=== PATIENT | male | born 1990 | race Caucasian/White ===

== ENCOUNTER 2023-02-16 10:40 | Inpatient (IN) ==
[2023-02-16] MEDS ORDERED: HYDROmorphone INJ 1 MG/ML SYRINGE IM STA (10:55)
[2023-02-16] MEDS ORDERED: KETOROLAC TROMETHAMINE 15 MG/ML VIAL IV STA (12:36)
[2023-02-16] MEDS ORDERED: GABAPENTIN 300 MG CAP PO SCH (12:45)
[2023-02-16 13:19] LABS: Basophils # (auto) 0.04 K/uL (0.00-0.20); Basophils % (auto) 0.4 %; Eosinophils # (auto) 0.11 K/uL (0.00-0.50); Eosinophils % (auto) 1.2 %; Hematocrit (blood only) 50.7 % (42.0-52.0); Immature Granulocytes # (auto) 0.04 K/uL (0.01-0.20); Immature Granulocytes % (auto) 0.4 %; Lymphocytes # (auto) 1.88 K/uL (1.20-3.40); Lymphocytes % (auto) 19.7 %; Mean Corpuscular Hemoglobin 29.8 pg (25.0-34.0); Mean Corpuscular Hgb Conc 33.5 g/dL (32.0-36.0); Mean Corpuscular Volume 88.9 fL (80.0-100.0); Monocytes # (auto) 0.65 K/uL (0.11-0.59); Monocytes % (auto) 6.8 %; Neutrophils % (auto) 71.5 %; Platelet Count 243 K/uL (130-400); RDW Coefficient of Variation 11.9 % (11.5-14.5); RDW Standard Deviation 38.9 fL (36.4-46.3); White Blood Count 9.52 K/ul (4.8-10.8)
[2023-02-16 13:41] LABS: Albumin Globulin Ratio 1.4 (0.9-2); Albumin Level 4.6 gm/dl (3.4-5.0); BUN Creatinine Ratio 21.1 (10-20); Bilirubin,Total 0.4 mg/dl (0.2-1.0); Calcium 9.8 mg/dl (8.6-10.3); Creatinine Clr Calc Pharmacy 172.5 ml/min; Est GFR (African American) 139.9 ml/min; Est GFR (Non-African American) 120.7 ml/min; Globulin 3.4 gm/dl (2.5-4.0); Potassium 4.4 mmol/L (3.5-5.1)
--- NOTE | 2023-02-16 15:38 | CT Scan Report ---
CT SCAN OF THE LUMBAR SPINE WITHOUT IV CONTRAST CLINICAL HISTORY: Low back pain. Right lower extremity radiculopathy. COMPARISON STUDY: MRI of the lumbar spine dated 11/27/2011. Abdominal CT dated 04/28/2022. TECHNIQUE: CT scan of the lumbar spine is performed from the lower thoracic spine to the sacrum. Imag es are reviewed in the axial, sagittal, and coronal planes. IV contrast was not administered for this examination. A dose lowering technique was utilized adhering to the principles of ALARA. CT DOSE: 1126.26 mGy.cm FINDINGS: The skeletal structures are well-mineralized. There is no evidence of fracture or malalignm ent involving the lumbar spine. Vertebral body height and alignment are maintained throughout the lum bar spine. Small anterior and lateral marginal osteophytes are seen throughout. The transverse and sp inous processes appear intact. There is no spondylolysis. No lytic or blastic lesion is seen. There i s moderate disc space narrowing at L5-S1 with associated endplate sclerosis. Mild disc space narrowin g is seen at the remaining lumbar levels. Small posterior disc occupy complex is are seen at L3-L4, L 4-L5, and L5-S1. There is a large posterior disc protrusion eccentric to the left at L4-L5, best seen on axial image #275. This contiguous to at least moderate central canal stenosis at this level. Ther e is left greater than right lateral disc bulge at this level which contribute to bilateral subarticu lar stenosis. This likely impinges on the exiting left L4 nerve root and may also abut the exiting ri ght L4 nerve root. There is a large left lateral disc bulge at L5-S1 seen on image #322. This contrib utes to subarticular stenosis and impinges on the exiting left L5 nerve root. Right lateral disc bulg e L5-S1 may abut the exiting right L5 nerve root. The visualized sacrum and bony pelvis appear intact . The paraspinous soft tissues are normal in appearance. The retroperitoneal structures are normal as visualized. No retroperitoneal lymphadenopathy is seen. IMPRESSION: 1. No acute bony abnormality is seen involving the lumbar spine. 2. Degenerative disc disease at L4-L5 and L5-S1 as above. See discussion. ACT 112: Negative or not required by law. Electronically signed by: Sheldon Ponce M.D. 02/16/2023 3:37 PM
[2023-02-16 15:42] LABS: Appearance Urine Clear (Clear); Bilirubin Urine Negative (Negative); Blood Urine Negative (Negative); Color Urine Yellow; Glucose Urine UA Negative (Negative); Ketones Urine Negative (Negative); Leukocyte Esterase Urine Negative (Negative); Nitrite Urine Negative (Negative); Protein Urine Negative (Negative); Specific Gravity Urine 1.023 (1.000-1.030); Urobilinogen Urine Negative (Negative); pH Urine 6.5 (4.5-7.5)
[2023-02-16] MEDS ORDERED: HYDROCODONE/ACETAMOPHEN 5/325MG TAB PO STA (16:42)
[2023-02-16] MEDS ORDERED: DEXAMETHASONE SOD INJ 4 MG/ML VIAL IV STA (16:42)
[2023-02-16] MEDS ORDERED: BACLOFEN 20 MG TAB PO STA (16:42)
--- NOTE | 2023-02-16 16:46 | Emergency Department Note ---
ED Provider Note History of Present Illness Chief Complaint: Back Injury/Pain Stated Complaint: BACK INJURY Time Seen by Provider: 02/16/23 10:45 Source: patient Mode of arrival: EMS Limitations: no limitations This patient is a 32-year-old male who presents to the emergency department via EMS for evaluation of back pain. Patient reports that "his back went out." He states that pain started last night but worsened this morning. He denies any specific injury to the back but states that he has pain in the right low back which radiates down the right posterior thigh. He reports a history of herniated disks. He has a back specialist as well as a painter set at home, but not from the area here. He states that typically when this happens he requires admission for a few days. He reports some weakness in the leg, denies numbness and denies incontinence. Home Medications Medication Instructions Recorded Confirmed Type No Known Home Medications 04/28/22 02/16/23 History Allergies Allergy/AdvReac Type Severity Reaction Status Date / Time No Known Allergies Allergy Unverified 02/16/23 16:34 Past Med/Surg History Social History Smoking Status: Former smoker Tobacco Type: Smokeless Tobacco (Dip or Chew) Do You Dip or Chew Tobacco: Yes; Hx Alcohol Use: No Hx Substance Use: No Preferred Language: Maori Communication Ability: Effective Banjo [employer] Person Required: No Beliefs That Will Affect Care: None Current Living Situation: Family Other Information That Helps Us Care for You: No Feels Safe at Home: Yes Safety Concerns: Feels Safe At This Time Assistive Devices: None Physical Exam Vital Signs Vital Signs - 24 hr 02/16/23 10:54 02/16/23 11:01 02/16/23 11:20 Temperature 36.5 C Temperature Source Oral Pulse Rate 85 72 Pulse Rate [Right Finger] 74 Pulse Rhythm Regular Pulse Rhythm [Right Finger] Regular Pulse Strength [Right Finger] Normal Respiratory Rate 20 20 20 Respiratory Effort / Characteristics Non-Labored Spontaneous Non-Labored Spontaneous Respiratory Depth Normal Normal Respiratory Pattern Regular Regular Blood Pressure 156/85 H Blood Pressure [Left Arm] 148/78 H Blood Pressure Mean 108 Blood Pressure Mean [Left Arm] 101 Blood Pressure Position [Left Arm] Lying Pulse Oximetry 95 97 92 Oxygen Delivery Method Room Air Room Air Room Air Sepsis Recent Fever Within 48 Hours No Sepsis New/Unexplained Change in Mental Status N/A Sepsis Action Taken by Nursing No Action Required 02/16/23 13:00 02/16/23 15:00 Temperature Temperature Source Pulse Rate Pulse Rate [Right Finger] 94 H 82 Pulse Rhythm Pulse Rhythm [Right Finger] Regular Pulse Strength [Right Finger] Normal Respiratory Rate 20 20 Respiratory Effort / Characteristics Non-Labored Spontaneous Non-Labored Spontaneous Respiratory Depth Normal Normal Respiratory Pattern Regular Regular Blood Pressure Blood Pressure [Left Arm] 151/74 H Blood Pressure Mean Blood Pressure Mean [Left Arm] 99 Blood Pressure Position [Left Arm] Lying Pulse Oximetry 95 94 Oxygen Delivery Method Room Air Room Air Sepsis Recent Fever Within 48 Hours Sepsis New/Unexplained Change in Mental Status Sepsis Action Taken by Nursing VITALS: Vitals are noted on the nurse's note and reviewed by myself. GENERAL: This is a 32-year-old male, in no acute distress, well-developed well- nourished. SKIN: The skin was without rashes. HEART: Regular rate and rhythm without murmurs gallops or rubs. LUNGS: Clear to auscultation bilaterally without wheezes, rales or rhonchi. ABDOMEN: Positive bowel sounds x 4. Soft, nontender. MUSCULOSKELETAL: No deformity. No tenderness of the spine. Full range of motion of bilateral lower extremities. Patellar DTRs 2+ bilaterally. NEURO: Patient was alert and oriented to person place and time. Distal sensation intact over bilateral lower extremities. Course Administered Medications Hydrocodone Bitart/Acetaminophen (Hydrocodone/Acetamophen 5/325mg Tab) 1 tab PO Q4H PRN PRN Reason: Moderate Pain (Scale 4, 5, 6) Stop: 03/02/23 21:04 Last Admin: 02/17/23 20:13 Dose: 1 tab Documented By: Admin: 02/17/23 14:31 Dose: 1 tab Documented By: Admin: 02/17/23 10:33 Dose: 1 tab Documented By: Admin: 02/17/23 05:21 Dose: 1 tab Documented By: Admin: 02/16/23 20:09 Dose: 1 tab Documented By: SANTOS Baclofen (Baclofen 20 Mg Tab) 20 mg PO TID [facility] Stop: 03/18/23 21:59 Last Admin: 02/17/23 20:14 Dose: 20 mg Documented By: Admin: 02/17/23 13:59 Dose: 20 mg Documented By: Admin: 02/17/23 07:50 Dose: 20 mg Documented By: Admin: 02/16/23 21:43 Dose: 20 mg Documented By: EM Calcium Carbonate (Calcium Carbonate 500 Mg Chewable Tab) 1,000 mg PO Q6H PRN PRN Reason: Indigestion Stop: 03/19/23 05:28 Last Admin: 02/17/23 16:01 Dose: 1,000 mg Documented By: Admin: 02/17/23 05:54 Dose: 1,000 mg Documented By: EM Gabapentin (Gabapentin 300 Mg Cap) 300 mg PO BID [facility] Stop: 03/18/23 20:59 Last Admin: 02/17/23 20:13 Dose: 300 mg Documented By: Admin: 02/17/23 07:51 Dose: 300 mg Documented By: Admin: 02/16/23 21:44 Dose: 300 mg Documented By: SANTOS Dexamethasone 6 mg/ Syringe 1.5 mls @ 1 mls/min IV Q8H [facility] Stop: 03/18/23 22:59 Last Admin: 02/17/23 14:28 Dose: 1 mls/min Documented By: Admin: 02/17/23 06:30 Dose: 1 mls/min Documented By: Admin: 02/16/23 22:48 Dose: 1 mls/min Documented By: SANTOS Morphine Sulfate (Morphine Sulfate 4 Mg/Ml 1 Ml Carp\\Vial) 4 mg IV Q3H PRN PRN Reason: Severe Pain (Scale 7, 8, 9,10) Stop: 03/02/23 17:01 Last Admin: 02/17/23 18:42 Dose: 4 mg Documented By: Admin: 02/17/23 15:40 Dose: 4 mg Documented By: Admin: 02/17/23 12:26 Dose: 4 mg Documented By: Admin: 02/17/23 09:24 Dose: 4 mg Documented By: Admin: 02/17/23 06:13 Dose: 4 mg Documented By: Admin: 02/17/23 01:58 Dose: 4 mg Documented By: Admin: 02/16/23 22:48 Dose: 4 mg Documented By: Admin: 02/16/23 17:47 Dose: 4 mg Documented By: JANNETTE Discontinued Medications Hydrocodone Bitart/Acetaminophen (Hydrocodone/Acetamophen 5/325mg Tab) 1 tab PO NOW STA Stop: 02/16/23 16:43 Last Admin: 02/16/23 17:45 Dose: 1 tab Documented By: JANNETTE Baclofen (Baclofen 20 Mg Tab) 20 mg PO NOW STA Stop: 02/16/23 16:43 Last Admin: 02/16/23 17:46 Dose: 20 mg Documented By: JANNETTE Dexamethasone (Dexamethasone Sod Inj 4 Mg/Ml Vial) 10 mg IV NOW STA Stop: 02/16/23 16:43 Last Admin: 02/16/23 17:48 Dose: 10 mg Documented By: JANNETTE Gabapentin (Gabapentin 300 Mg Cap) 300 mg PO QAM [facility] Stop: 03/18/23 12:44 Last Admin: 02/16/23 13:32 Dose: 300 mg Documented By: JANNETTE Hydromorphone HCl (Hydromorphone Inj 1 Mg/Ml Syringe) 1 mg IM NOW STA Stop: 02/16/23 10:56 Last Admin: 02/16/23 11:26 Dose: 1 mg Documented By: JANNETTE Ketorolac Tromethamine (Ketorolac Tromethamine 15 Mg/Ml Vial) 15 mg IV NOW STA Stop: 02/16/23 12:37 Last Admin: 02/16/23 13:09 Dose: 15 mg Documented By: JANNETTE Polyethylene Glycol (Polyethylene (Miralax) 17 Gm Pack) 17 gm PO ONCE ONE Stop: 02/17/23 11:26 Last Admin: 02/17/23 11:38 Dose: 17 gm Documented By: DC Medical Decision Making Differential Diagnosis Differential diagnosis includes cauda equina syndrome, cord compression, disc herniation, muscle spasm, lumbar strain, epidural abscess, malignancy, transverse myelitis, urinary tract infection, colitis, diverticulitis, kidney stone, among others. Home Medications was personally reviewed by me Laboratory Data Attestation: I reviewed the patient's lab results. 02/17/23 05:36 02/17/23 05:36 Lab Results 02/16/23 Range/Units 12:51 WBC 9.52 (4.8-10.8) K/ul RBC 5.70 (4.70-6.10) M/uL Hgb 17.0 (14.0-18.0) g/dl Hct 50.7 (42.0-52.0) % MCV 88.9 (80.0-100.0) fL MCH 29.8 (25.0-34.0) pg MCHC 33.5 (32.0-36.0) g/dL RDW Std Deviation 38.9 (36.4-46.3) fL RDW Coeff of Danny 11.9 (11.5-14.5) % Plt Count 243 (130-400) K/uL MPV 10.0 (9.4-12.4) fL Immature Gran % (Auto) 0.4 % Neut % (Auto) 71.5 % Lymph % (Auto) 19.7 % [place] % (Auto) 6.8 % Eos % (Auto) 1.2 % Baso % (Auto) 0.4 % Neut # (Auto) 6.80 H (1.40-6.50) K/uL Lymph # (Auto) 1.88 (1.20-3.40) K/uL [place] # (Auto) 0.65 H (0.11-0.59) K/uL Eos # (Auto) 0.11 (0.00-0.50) K/uL Baso # (Auto) 0.04 (0.00-0.20) K/uL Immature Gran # (Auto) 0.04 (0.01-0.20) K/uL Sodium 138 (136-145) mmol/L Potassium 4.4 (3.5-5.1) mmol/L Chloride 103 (98-107) mmol/L Carbon Dioxide 29 (21-32) mmol/L Anion Gap 6 (3-11) BUN 16 (6-23) mg/dl Creatinine 0.76 (0.6-1.4) mg/dl Est Cr Clr Drug Dosing 172.5 ml/min Est GFR ( Amer) 139.9 ml/min Est GFR (Non-Af Amer) 120.7 ml/min BUN/Creatinine Ratio 21.1 H (10-20) Glucose 97 (70-99(Fasting)) mg/dl Calcium 9.8 (8.6-10.3) mg/dl Total Bilirubin 0.4 (0.2-1.0) mg/dl AST 20 (13-39) U/L ALT 36 (7-52) U/L Alkaline Phosphatase 51 (34-104) U/L Total Protein 8.0 (6.0-8.3) gm/dl Albumin 4.6 (3.4-5.0) gm/dl Globulin 3.4 (2.5-4.0) gm/dl Albumin/Globulin Ratio 1.4 (0.9-2) Imaging Data Attestation: I personally reviewed and interpreted this imaging study as follows: Radiologist's Impression: Lumbar Spine CT 02/16/23 12:36 CT SCAN OF THE LUMBAR SPINE WITHOUT IV CONTRAST CLINICAL HISTORY: Low back pain. Right lower extremity radiculopathy. COMPARISON STUDY: MRI of the lumbar spine dated 11/27/2011. Abdominal CT dated 04/28/2022. TECHNIQUE: CT scan of the lumbar spine is performed from the lower thoracic spine to the sacrum. Images are reviewed in the axial, sagittal, and coronal planes. IV contrast was not administered for this examination. A dose lowering technique was utilized adhering to the principles of ALARA. CT DOSE: 1126.26 mGy.cm FINDINGS: The skeletal structures are well-mineralized. There is no evidence of fracture or malalignment involving the lumbar spine. Vertebral body height and alignment are maintained throughout the lumbar spine. Small anterior and lateral marginal osteophytes are seen throughout. The transverse and spinous processes appear intact. There is no spondylolysis. No lytic or blastic lesion is seen. There is moderate disc space narrowing at L5-S1 with associated endplate sclerosis. Mild disc space narrowing is seen at the remaining lumbar levels. Small posterior disc occupy complex is are seen at L3-L4, L4-L5, and L5-S1. There is a large posterior disc protrusion eccentric to the left at L4-L5, best seen on axial image #275. This contiguous to at least moderate central canal stenosis at this level. There is left greater than right lateral disc bulge at this level which contribute to bilateral subarticular stenosis. This likely impinges on the exiting left L4 nerve root and may also abut the exiting right L4 nerve root. There is a large left lateral disc bulge at L5-S1 seen on image #322. This contributes to subarticular stenosis and impinges on the exiting left L5 nerve root. Right lateral disc bulge L5-S1 may abut the exiting right L5 nerve root. The visualized sacrum and bony pelvis appear intact. The paraspinous soft tissues are normal in appearance. The retroperitoneal structures are normal as visualized. No retroperitoneal lymphadenopathy is seen. IMPRESSION: 1. No acute bony abnormality is seen involving the lumbar spine. 2. Degenerative disc disease at L4-L5 and L5-S1 as above. See discussion. ACT 112: Negative or not required by law. Electronically signed by: Sheldon oPnce M.D. 02/16/2023 3:37 PM MDM Narrative This patient is a 32-year-old male who presents to the emergency department for evaluation of low back pain. Patient has a history of back pain but is not from the area. He reportedly has a spine surgeon and painter set at home. There are no red flags that would be concerning for cauda equina syndrome, cord compression or infection. CT of the lumbar spine shows degenerative changes. Labs unremarkable. Patient treated with multiple doses of medication. He requested gabapentin as he states this has helped him in the past he was given a dose of this without relief. On multiple reassessments, patient reported no relief in his pain and reported that he was not able to get up and move and did not feel he was able to be discharged. [facility] and did agree to evaluate the patient for further care. Impression Lumbar radiculopathy Discharge Plan Visit Data Chief Complaint: Back Injury/Pain Stated Complaint: BACK INJURY ED Provider: Sheldon Wilkins ED Midlevel Provider: Sherine Luke Discharge Problem: Lumbar radiculopathy Patient Disposition: Admitted As Inpatient Discharge Instructions Interventions: ED Discharge Assessment Last Done: 02/16/23 21:22
--- NOTE | 2023-02-16 17:04 | History & Physical Report ---
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 He typically has symptoms of left lower extremity radiculopathy when he has flareups, however, this time he developed right lower extremity radiculopathy in addition to the left He denies bowel or bladder incontinence He denies any recent trauma CT scan of the lumbar spine shows disc bulges at L4 and L5, with impingement of exiting nerve roots more prominent on left than right. There is also moderate central canal stenosis at L4-L5 level From the ED patient received the following: Gabapentin 300 mg p.o., Toradol 15 mg IV and Dilaudid 1 mg IM Gabapentin 300 mg p.o. twice daily Give dexamethasone 10 mg IV now, then 6 mg IV every 8 hours Baclofen 20 mg p.o. 3 times daily with first dose now [place] 5/325, 1 every 4 hours as needed for moderate pain Morphine sulfate 4 mg IV every 3 hours as needed for severe pain Consult to orthopedic spine surgery Dr. Hernandez History of Present Illness Chief Complaint: The patient presents to the emergency department with complaint of acute worsening of his intermittent low back pain, which usually causes radiation down his left leg, but this time is causing pain down his right leg. 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 He denies loss of bowel or bladder function. 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 Allergies Allergy/AdvReac Type Severity Reaction Status Date / Time No Known Allergies Allergy Unverified 02/16/23 16:34 Home Medications Medication Instructions Recorded Confirmed Type No Known Home Medications 04/28/22 02/16/23 History Past Med/Surg History Social History Smoking Status: Never smoker Feels Safe at Home: Yes Review of Systems Review of Systems: The patient denies chest pain, palpitations, shortness of breath, dyspnea on exertion, cough, lower extremity swelling, sore throat, fevers, chills, sweats, weight change, nausea, vomiting, diarrhea , constipation, abdominal pain, pelvic pain, blood in urine or stool, dysuria, urinary frequency or urgency, lightheadedness, dizziness, headache, memory loss, loss of consciousness, rash, abnormal bruising or bleeding, imbalance, focal or generalized weakness, numbness or tingling in arms , generalized arthralgias or myalgias, neck pain, or night sweats. The review of systems is otherwise negative other than for that already noted above, and at least 10 systems have been reviewed. Physical Exam Physical Exam: The patient is awake, alert and oriented 3, well developed and well nourished, normocephalic and atraumatic, lying in bed and in mild distress secondary to low back and right leg pain HEENT--PERRL, EOMI, mucous membranes and oropharynx normal Neck--supple. No JVD. No bruits. Thyroid normal, trachea midline, no adenopathy. Heart--normal S1 and S2. No murmurs, rubs or gallops. Lungs--clear bilaterally, no respiratory distress, no accessory muscle use. Abdomen--normal bowel sounds and soft. Nontender. Nondistended, no hernias or masses, no organomegaly. Extremities--no cyanosis or clubbing. No edema. There are good distal pulses b/l. Dermatologic--normal skin turgor, normal color, no abnormal lymph nodes, no rash. Neurologic--cranial nerves II through XII grossly intact. Rheumatologic--limited exam due to back pain and right lower extremity pain Psychiatric--normal affect. Results & Data Results & Data Vital Signs (Past 12 Hours) Vital Signs Temp Pulse Pulse Resp BP BP Pulse Ox 02/16/23 15:00 82 20 151/74 H 94 02/16/23 13:00 94 H 20 95 02/16/23 11:20 74 20 148/78 H 92 02/16/23 11:01 72 20 97 02/16/23 10:54 36.5 C 85 20 156/85 H 95 O2 Del Method 02/16/23 15:00 Room Air 02/16/23 13:00 Room Air 02/16/23 11:20 Room Air 02/16/23 11:01 Room Air 02/16/23 10:54 Room Air Laboratory Results Laboratory Results WBC 9.52 K/ul (4.8-10.8) 02/16/23 12:51 RBC 5.70 M/uL (4.70-6.10) 02/16/23 12:51 Hgb 17.0 g/dl (14.0-18.0) 02/16/23 12:51 Hct 50.7 % (42.0-52.0) 02/16/23 12:51 MCV 88.9 fL (80.0-100.0) 02/16/23 12:51 MCH 29.8 pg (25.0-34.0) 02/16/23 12:51 MCHC 33.5 g/dL (32.0-36.0) 02/16/23 12:51 RDW Std Deviation 38.9 fL (36.4-46.3) 02/16/23 12:51 RDW Coeff of Danny 11.9 % (11.5-14.5) 02/16/23 12:51 Plt Count 243 K/uL (130-400) 02/16/23 12:51 MPV 10.0 fL (9.4-12.4) 02/16/23 12:51 Immature Gran % (Auto) 0.4 % 02/16/23 12:51 Neut % (Auto) 71.5 % 02/16/23 12:51 Lymph % (Auto) 19.7 % 02/16/23 12:51 [place] % (Auto) 6.8 % 02/16/23 12:51 Eos % (Auto) 1.2 % 02/16/23 12:51 Baso % (Auto) 0.4 % 02/16/23 12:51 Neut # (Auto) 6.80 K/uL (1.40-6.50) H 02/16/23 12:51 Lymph # (Auto) 1.88 K/uL (1.20-3.40) 02/16/23 12:51 [place] # (Auto) 0.65 K/uL (0.11-0.59) H 02/16/23 12:51 Eos # (Auto) 0.11 K/uL (0.00-0.50) 02/16/23 12:51 Baso # (Auto) 0.04 K/uL (0.00-0.20) 02/16/23 12:51 Immature Gran # (Auto) 0.04 K/uL (0.01-0.20) 02/16/23 12:51 Sodium 138 mmol/L (136-145) 02/16/23 12:51 Potassium 4.4 mmol/L (3.5-5.1) 02/16/23 12:51 Chloride 103 mmol/L (98-107) 02/16/23 12:51 Carbon Dioxide 29 mmol/L (21-32) 02/16/23 12:51 Anion Gap 6 (3-11) 02/16/23 12:51 BUN 16 mg/dl (6-23) 02/16/23 12:51 Creatinine 0.76 mg/dl (0.6-1.4) 02/16/23 12:51 Est Cr Clr Drug Dosing 172.5 ml/min 02/16/23 12:51 Est GFR ( Amer) 139.9 ml/min 02/16/23 12:51 Est GFR (Non-Af Amer) 120.7 ml/min 02/16/23 12:51 BUN/Creatinine Ratio 21.1 (10-20) H 02/16/23 12:51 Glucose 97 mg/dl (70-99(Fasting)) 02/16/23 12:51 Calcium 9.8 mg/dl (8.6-10.3) 02/16/23 12:51 Total Bilirubin 0.4 mg/dl (0.2-1.0) 02/16/23 12:51 AST 20 U/L (13-39) 02/16/23 12:51 ALT 36 U/L (7-52) 02/16/23 12:51 Alkaline Phosphatase 51 U/L (34-104) 02/16/23 12:51 Total Protein 8.0 gm/dl (6.0-8.3) 02/16/23 12:51 Albumin 4.6 gm/dl (3.4-5.0) 02/16/23 12:51 Globulin 3.4 gm/dl (2.5-4.0) 02/16/23 12:51 Albumin/Globulin Ratio 1.4 (0.9-2) 02/16/23 12:51 Urine Color Yellow 02/16/23 Unknown Urine Appearance Clear (Clear) 02/16/23 Unknown Urine pH 6.5 (4.5-7.5) 02/16/23 Unknown Ur Specific [place] 1.023 (1.000-1.030) 02/16/23 Unknown Urine Protein Negative (Negative) 02/16/23 Unknown Urine Glucose (UA) Negative (Negative) 02/16/23 Unknown Urine Ketones Negative (Negative) 02/16/23 Unknown Urine Blood Negative (Negative) 02/16/23 Unknown Urine Nitrite Negative (Negative) 02/16/23 Unknown Urine Bilirubin Negative (Negative) 02/16/23 Unknown Urine Urobilinogen Negative (Negative) 02/16/23 Unknown Ur Leukocyte Esterase Negative (Negative) 02/16/23 Unknown Impressions Lumbar Spine CT 02/16/23 12:36 CT SCAN OF THE LUMBAR SPINE WITHOUT IV CONTRAST CLINICAL HISTORY: Low back pain. Right lower extremity radiculopathy. COMPARISON STUDY: MRI of the lumbar spine dated 11/27/2011. Abdominal CT dated 04/28/2022. TECHNIQUE: CT scan of the lumbar spine is performed from the lower thoracic spine to the sacrum. Images are reviewed in the axial, sagittal, and coronal planes. IV contrast was not administered for this examination. A dose lowering technique was utilized adhering to the principles of ALARA. CT DOSE: 1126.26 mGy.cm FINDINGS: The skeletal structures are well-mineralized. There is no evidence of fracture or malalignment involving the lumbar spine. Vertebral body height and alignment are maintained throughout the lumbar spine. Small anterior and lateral marginal osteophytes are seen throughout. The transverse and spinous processes appear intact. There is no spondylolysis. No lytic or blastic lesion is seen. There is moderate disc space narrowing at L5-S1 with associated endplate sclerosis. Mild disc space narrowing is seen at the remaining lumbar levels. Small posterior disc occupy complex is are seen at L3-L4, L4-L5, and L5-S1. There is a large posterior disc protrusion eccentric to the left at L4-L5, best seen on axial image #275. This contiguous to at least moderate central canal stenosis at this level. There is left greater than right lateral disc bulge at this level which contribute to bilateral subarticular stenosis. This likely impinges on the exiting left L4 nerve root and may also abut the exiting right L4 nerve root. There is a large left lateral disc bulge at L5-S1 seen on image #322. This contributes to subarticular stenosis and impinges on the exiting left L5 nerve root. Right lateral disc bulge L5-S1 may abut the exiting right L5 nerve root. The visualized sacrum and bony pelvis appear intact. The paraspinous soft tissues are normal in appearance. The retroperitoneal structures are normal as visualized. No retroperitoneal lymphadenopathy is seen. IMPRESSION: 1. No acute bony abnormality is seen involving the lumbar spine. 2. Degenerative disc disease at L4-L5 and L5-S1 as above. See discussion. ACT 112: Negative or not required by law. Electronically signed by: Sheldon Ponce M.D. 02/16/2023 3:37 PM Code Status & VTE Plan Code Status Full code VTE Prophylaxis Plan VTE Prophylaxis will be ordered: Yes PG Care Time/CCT Total # of Minutes Spent Total Time Spent with Patient: Total time spent is greater than 50% in coordination of care (as documented) at patient's floor/unit and/or counseling patient: Coding Level of Care Code 28931 INT INP/OBS CARE 3/75MIN Diagnoses Lumbosacral radiculopathy due to degenerative joint disease of spine M47.27
[2023-02-16] MEDS: MoRPHine SULFATE 4 MG/ML 1 ML CARP\\VIAL IV PRN ×2 (17:47→22:48)
[2023-02-16] MEDS ORDERED: ACETAMINOPHEN 325 MG TAB PO PRN (19:42)
[2023-02-16] MEDS ORDERED: ONDANSETRON INJ 2 MG/ML 2 ML VIAL IV PRN (19:42)
[2023-02-16] MEDS ORDERED: HYDROCODONE/ACETAMOPHEN 5/325MG TAB PO PRN (19:42)
[2023-02-16] MEDS: HYDROCODONE/ACETAMOPHEN 5/325MG TAB PO PRN (20:09)
[2023-02-16] MEDS: BACLOFEN 20 MG TAB PO SCH (21:43)
[2023-02-16] MEDS: GABAPENTIN 300 MG CAP PO SCH (21:44)
[2023-02-16] MEDS: dexAMETHasone 6 MG in SYRINGE 0 ML IV SCH (22:48)
[2023-02-17] MEDS: MoRPHine SULFATE 4 MG/ML 1 ML CARP\\VIAL IV PRN ×7 (01:58→22:09)
[2023-02-17] MEDS: HYDROCODONE/ACETAMOPHEN 5/325MG TAB PO PRN ×4 (05:21→20:13)
[2023-02-17] MEDS: CALCIUM CARBONATE 500 MG CHEWABLE TAB PO PRN ×2 (05:54→16:01)
[2023-02-17] MEDS: dexAMETHasone 6 MG in SYRINGE 0 ML IV SCH ×3 (06:30→22:09)
[2023-02-17 06:32] LABS: Basophils # (auto) 0.02 K/uL (0.00-0.20); Basophils % (auto) 0.2 %; Hemoglobin 17.1 g/dl (14.0-18.0); Immature Granulocytes # (auto) 0.07 K/uL (0.01-0.20); Immature Granulocytes % (auto) 0.6 %; Lymphocytes % (auto) 8.7 %; Mean Corpuscular Hemoglobin 29.6 pg (25.0-34.0); Mean Corpuscular Hgb Conc 33.5 g/dL (32.0-36.0); Mean Corpuscular Volume 88.4 fL (80.0-100.0); Mean Platelet Volume 10.4 fL (9.4-12.4); Monocytes # (auto) 0.17 K/uL (0.11-0.59); Monocytes % (auto) 1.5 %; Neutrophils # (auto) 10.22 K/uL (1.40-6.50); Platelet Count 264 K/uL (130-400); RDW Coefficient of Variation 11.6 % (11.5-14.5); RDW Standard Deviation 37.2 fL (36.4-46.3); Red Blood Count 5.77 M/uL (4.70-6.10); White Blood Count 11.48 K/ul (4.8-10.8)
[2023-02-17 06:47] LABS: Albumin Level 4.4 gm/dl (3.4-5.0); BUN Creatinine Ratio 21.9 (10-20); Calcium 9.6 mg/dl (8.6-10.3); Creatinine Clr Calc Pharmacy 182.2 ml/min; Est GFR (African American) 142.2 ml/min; Est GFR (Non-African American) 122.7 ml/min; Magnesium 1.9 mg/dl (1.7-2.4); Phosphorus 2.5 mg/dl (2.5-4.9); Potassium 4.5 mmol/L (3.5-5.1)
[2023-02-17] MEDS: BACLOFEN 20 MG TAB PO SCH ×3 (07:50→20:14)
[2023-02-17] MEDS: GABAPENTIN 300 MG CAP PO SCH ×2 (07:51→20:13)
--- NOTE | 2023-02-17 11:01 | Orthopedic Consultation ---
Date of Consultation February 17, 2023 Assessment & Plan (1) Lumbosacral radiculopathy due to degenerative joint disease of spine: At this time would like to obtain an MRI lumbar spine for further anatomic detail specifically of the nerves and disc at the L4-L5 levels. I will make further conditions after review. History of Present Illness Reason for Consultation: Back and bilateral leg pain Attending Physician: Jimmie Houston MD History of Present Illness This is a very pleasant 32-year-old male who presents with more decline in status with severe right greater than left leg pain. He denies any specific trauma fall or event. Has been managing the symptoms for well over a year. It is typically on the left leg that is most symptomatic. The right leg is essentially new. 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 Denies any specific trauma fall or event. He states any sort of ambulation weightbearing right lower extremity is incapacitating and pain. He has been unable to walk since admission. Allergies Allergy/AdvReac Type Severity Reaction Status Date / Time No Known Allergies Allergy Unverified 02/16/23 16:34 Home Medications Medication Instructions Recorded Confirmed Type No Known Home Medications 04/28/22 02/16/23 History Patient History Social History Smoking Status: Former smoker Tobacco Type: Smokeless Tobacco (Dip or Chew) Do You Dip or Chew Tobacco: Yes; Hx Alcohol Use: No Hx Substance Use: No Preferred Language: Tuvaluan Communication Ability: Effective Flexible Babysitter Required: No Beliefs That Will Affect Care: None Current Living Situation: Family Other Information That Helps Us Care for You: No Feels Safe at Home: Yes Safety Concerns: Feels Safe At This Time Assistive Devices: None Physical Exam Physical Exam: On exam he is lying supine. He has reasonable sensory to cold light touch lower extremities. Plantarflexion dorsiflexion quadriceps appear to be symmetric and intact. Results & Data Vital Signs (Past 12 Hours) Vital Signs Temp Pulse Resp BP Pulse Ox O2 Del Method 02/17/23 06:35 36.7 C 90 20 131/72 93 Room Air
[2023-02-17] MEDS ORDERED: DOCUSATE SODIUM 100 MG CAP PO PRN (11:24)
[2023-02-17] MEDS ORDERED: POLYETHYLENE (MIRALAX) 17 GM PACK PO PRN (11:24)
--- NOTE | 2023-02-17 11:24 | Hospitalist Progress Note ---
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 6 Hospitalizations in the last year. Has spine surgeon in [facility] recommending fusion, but wanted a second opnion before preceding (had appointment scheduled). -Radiculopathy symptoms normally LLE, but this time RLE > LLE -He denies bowel or bladder incontinence. Denies any recent trauma -CT lumbar spine:disc bulges at L4 and L5, with impingement of exiting nerve roots more prominent on left than right. There is also moderate central canal stenosis at L4-L5 level -Current pain control regiment: -Gabapentin 300 mg p.o. twice daily -Dexamethasone 6 mg IV every 8 hours - Baclofen 20 mg p.o. 3 times daily - [place] 5/325, 1 every 4 hours as needed for moderate pain - Morphine sulfate 4 mg IV every 3 hours as needed for severe pain Consult to orthopedic spine surgery Dr. Hernandez - MRI lumbar spine ordered (2) Hx of opioid abuse: Plan: Patient reports addiction ~10 years ago - Agreeable to take opioids while inpatient, but does not want any rx to go home with - Would not increase current amount of inpatient narcotics Plan Dispo: continued inpatient stay Admission and Anticipated Discharge Date Admission Date: February 16, 2023 Supervising Physician Co-Signing Physician Notes Attending Attestation - Chart reviewed, care plan d/w SAMINA Carl. I agree w/ the brantley components of her documentation. Jimmie Houston MD Subjective 1100 - Patient seen resting in bed. States that pain is well controlled when he is laying flat, but quite exacerbated with any twisting/bending or movement. He resides outskirts of [facility], and was in [place] visiting family for the holidays. Was having a back pain flare and was trying to have his dad drive him to a hospital near home, but only made it 10 minutes in the car before the pain was excruciating. Has been dealing with the pain for a year, has been hospitalized ~6 times. Follows with pain management for injections, last one was 12/21. Has a spine surgeon that recommends fusions, but he is hoping to have a laminectomy. Reports hx of opiate addiction, last use about 10 years ago. States that his first few hospitalizations he did not take any pain medications. Now he is agreeable to take pain medications while he is inpatient, but will not take a nything outside of the hospital. has not had a Bowel movement in a few days. Denies nausea or vomiting. Denies CP or SOB. Review of Systems Review of Systems: All systems reviewed & are unremarkable except as noted in Subjective Physical Exam Physical Exam: General: WN/WD, NAD, VS as above, resting comfortably in bed Resp: normal respiratory effort, lungs clear to auscultation CV: RRR, no murmur, Abd: normal bowel sounds, non tender, no hepatosplenomegaly Extremities: Decreased sensation right lower extremity, decreased strength with toe flexion on the right Neuro: A&O x3, Skin: intact, no lesions noted Results & Data Results & Data Vital Signs (Past 12 Hours) Vital Signs Temp Pulse Resp BP Pulse Ox O2 Del Method 02/17/23 06:35 36.7 C 90 20 131/72 93 Room Air Laboratory Results CBC and chemistry reviewed PG Care Time/CCT Total # of Minutes Spent Total Time Spent with Patient: Total time spent is greater than 50% in coordination of care (as documented) at patient's floor/unit and/or counseling patient: Coding Level of Care Code 44743 SUB INP/OBS CARE 2/35MIN Diagnoses Lumbosacral radiculopathy due to degenerative joint disease of spine M47.27 Hx of opioid abuse F11.11
[2023-02-17] MEDS ORDERED: POLYETHYLENE (MIRALAX) 17 GM PACK PO ONE (11:25)
[2023-02-18] MEDS: CALCIUM CARBONATE 500 MG CHEWABLE TAB PO PRN ×2 (00:39→15:20)
[2023-02-18] MEDS: HYDROCODONE/ACETAMOPHEN 5/325MG TAB PO PRN ×4 (00:40→15:53)
[2023-02-18] MEDS: MoRPHine SULFATE 4 MG/ML 1 ML CARP\\VIAL IV PRN ×7 (02:02→23:14)
[2023-02-18] MEDS: dexAMETHasone 6 MG in SYRINGE 0 ML IV SCH ×3 (06:02→23:15)
[2023-02-18] MEDS: GABAPENTIN 300 MG CAP PO SCH ×2 (08:09→20:10)
[2023-02-18] MEDS: BACLOFEN 20 MG TAB PO SCH ×3 (08:09→20:10)
[2023-02-18 08:43] LABS: Basophils # (auto) 0.05 K/uL (0.00-0.20); Basophils % (auto) 0.2 %; Hematocrit (blood only) 50.4 % (42.0-52.0); Hemoglobin 16.8 g/dl (14.0-18.0); Immature Granulocytes # (auto) 0.16 K/uL (0.01-0.20); Immature Granulocytes % (auto) 0.8 %; Lymphocytes # (auto) 1.48 K/uL (1.20-3.40); Mean Corpuscular Hemoglobin 29.9 pg (25.0-34.0); Mean Corpuscular Hgb Conc 33.3 g/dL (32.0-36.0); Mean Corpuscular Volume 89.7 fL (80.0-100.0); Mean Platelet Volume 10.6 fL (9.4-12.4); Monocytes # (auto) 1.09 K/uL (0.11-0.59); Monocytes % (auto) 5.2 %; Neutrophils # (auto) 18.31 K/uL (1.40-6.50); Neutrophils % (auto) 86.8 %; Platelet Count 288 K/uL (130-400); RDW Coefficient of Variation 11.9 % (11.5-14.5); Red Blood Count 5.62 M/uL (4.70-6.10); White Blood Count 21.09 K/ul (4.8-10.8)
[2023-02-18 08:55] LABS: Albumin Level 4.2 gm/dl (3.4-5.0); BUN Creatinine Ratio 21.7 (10-20); Calcium 9.5 mg/dl (8.6-10.3); Creatinine Clr Calc Pharmacy 192.8 ml/min; Est GFR (African American) 145.6 ml/min; Est GFR (Non-African American) 125.6 ml/min; Phosphorus 3.2 mg/dl (2.5-4.9); Potassium 4.3 mmol/L (3.5-5.1)
--- NOTE | 2023-02-18 12:40 | Orthopedic Progress Note ---
Date of Service February 18, 2023 Assessment & Plan (1) Lumbar disc herniation with radiculopathy: Plan: MRI lumbar spine was performed demonstrates evidence of a large disc herniation L4-L5. There is a new component is appreciable on the right which is consistent with his symptom complex. There is disc base collapse L4-5 and central disc protrusion L3-L4. Plan in length discussed today with the patient reviewing his updated imaging and treatment options. Believe the majority of his symptom complex is from the L4-L5 region. We discussed return to injections versus surgical invention. He has undergone an extensive course of injections would like to pursue surgery. At this time he would like to avoid fusion. Subsequently we will perform a lumbar decompression discectomy L4-L5. He understands he is at risk for recurrent disc herniation and possible future lumbar surgery. Respecters pros cons alternatives in detail. At this time we will try to have him evaluated and cleared for surgery as soon as possible. Admission and Anticipated Discharge Date Admission Date: February 16, 2023 Subjective Patient continues have significant bilateral leg pain right greater than left. This marked limits his ability to stand and ambulate. Physical Exam Physical Exam: On exam he is in bed. Continues demonstrate tension signs with straight leg raising. Results & Data Vital Signs (Past 12 Hours) Vital Signs Temp Pulse Resp BP Pulse Ox O2 Del Method 02/18/23 07:21 36.4 C L 75 18 123/67 92 Room Air Queries Orthopedic Spine Obesity: Yes
--- NOTE | 2023-02-18 13:52 | Magnetic Resonance Report ---
MRI OF THE LUMBAR SPINE WITHOUT IV CONTRAST CLINICAL HISTORY: Right leg pain. COMPARISON STUDY: CT scan of the lumbar spine dated 02/16/2023. TECHNIQUE: MRI of the lumbar spine is performed utilizing various T1 and T2-weighted sequences in the axial, sagittal, and coronal planes. IV contrast was not administered for this examination. FINDINGS: Lumbar spine: Vertebral body height and alignment are maintained throughout the lumbar spine. There a re tiny anterior osteophytes. The transverse and spinous processes appear intact. No spondylolysis is seen. There is chronic degenerative endplate change and mild endplate edema at L4-L5 and L5-S1. No d estructive bony lesion is seen. Intervertebral discs: Disc desiccation is noted in the lower lumbar region. There is moderate loss of height at L5-S1 and mild loss of height at L4-L5. Spinal cord: The visualized spinal cord is normal in morphology and signal intensity. The conus medul anshul terminates at the T12-L1 interspace. The nerve roots of the cauda equina are normal in morpholo gy. L1-L2: Unremarkable. L2-L3: Unremarkable. L3-L4: There is minimal posterior disc bulge with annular fissure. The central canal and neural effie chris are patent. L4-L5: There is a central posterior disc extrusion with annular fissure, eccentric to the left. This impinges on the transiting nerve roots and may tether the cauda equina at this level. The extruded an d possible sequestered fragment, eccentric to the left is best seen on sagittal image #10 and measure s up to 1.8 cm. There is severe central canal stenosis at this level with a minimum AP diameter of 4 mm. Lateral disc bulge is seen bilaterally, left greater than right. This likely abuts the exiting bi lateral L4 nerve roots. No significant neural foraminal stenosis is identified. L5-S1: There is broad-based posterior disc bulge with annular fissure. This abuts the transiting nerv e roots. There is no significant acquired compromise of the central canal at this level. Lateral disc bulge contributes to mild bilateral subarticular stenosis at this level. No significant neural effie inal narrowing is identified. Sacrum: The sacrum is normal in morphology and signal intensity. Soft tissues: The paraspinous soft tissues are within normal limits. The retroperitoneal structures a re grossly unremarkable but incompletely evaluated. IMPRESSION: 1. Large central posterior disc extrusion with a possible sequestered fragment at L4-L5 as above. The re is severe central canal stenosis at this level. 2. Spondylotic change at additional levels as above. See discussion for detailed level by level mike sis. 3. Degenerative disc disease as above, greatest at L5-S1 with mild endplate change as above. 4. No destructive bony process is seen. Dictated: 02/18/2023 9:15 AM Transcribed: 02/18/2023 9:56 AM Marcellus [id number] [email or web address] Electronically signed by: Sheldon Ponce M.D. 02/18/2023 1:50 PM
--- NOTE | 2023-02-18 16:03 | Hospitalist Progress Note ---
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 6 Hospitalizations in the last year. Has spine surgeon in [facility] recommending fusion, but wanted a second opnion before preceding (had appointment scheduled). -Radiculopathy symptoms normally LLE, but this time RLE > LLE -He denies bowel or bladder incontinence. Denies any recent trauma -CT lumbar spine:disc bulges at L4 and L5, with impingement of exiting nerve roots more prominent on left than right. There is also moderate central canal stenosis at L4-L5 level -Current pain control regiment: -Gabapentin 300 mg p.o. twice daily -Dexamethasone 6 mg IV every 8 hours - Baclofen 20 mg p.o. 3 times daily - [place] 5/325, 1 every 4 hours as needed for moderate pain - Morphine sulfate 4 mg IV every 3 hours as needed for severe pain Consult to orthopedic spine surgery Dr. Hernandez - MRI lumbar spine: Large posterior disc extrusion L4-L5 impinging on bilateral nerve roots, with severe central canal stenosis - Plan for OR 02/20 for L4-L5 Decompression -Does not need preop EKG/chest xray - no underlying cardiopulmary problems, able to achieve 4 mets. -Will check Coags prior to OR (2) Hx of opioid abuse: Plan: Patient reports addiction ~10 years ago - Agreeable to take opioids while inpatient, but does not want any rx to go home with - Would not increase current amount of inpatient narcotics Plan Dispo: continued inpatient stay, surgery planned for 02/19 DVT proh: low risk, encourage ambulation Admission and Anticipated Discharge Date Admission Date: February 16, 2023 Supervising Physician Co-Signing Physician Notes Attending Attestation - Chart reviewed, care plan d/w SAMINA Carl. I agree w/ the brantley components of her documentation. Cont pain meds, steroids, etc for pain control. L-spine surgery tentatively planned for 02/20/23. Jimmie Houston MD Subjective Patient seen lying in bed, appears more comfortable than yesterday. Feels like is pain is better controlled, has been up to the bathroom a few times (previously using urinal). Had a BM. Good appetite. Denies CP or SOB. Plan for OR with Dr. Hernandez on 02/20 Review of Systems Review of Systems: All systems reviewed & are unremarkable except as noted in Subjective Physical Exam Physical Exam: General: WN/WD, NAD, VS as above, resting comfortably in bed Resp: normal respiratory effort, lungs clear to auscultation CV: RRR, no murmur, Abd: normal bowel sounds, non tender, no hepatosplenomegaly Results & Data Results & Data Vital Signs (Past 12 Hours) Vital Signs Temp Pulse Resp BP Pulse Ox O2 Del Method 02/18/23 14:01 36.5 C 101 H 16 120/62 95 Room Air 02/18/23 07:21 36.4 C L 75 18 123/67 92 Room Air Laboratory Results CBC and chemistry reviewed PG Care Time/CCT Total # of Minutes Spent Total Time Spent with Patient: Total time spent is greater than 50% in coordination of care (as documented) at patient's floor/unit and/or counseling patient: Coding Level of Care Code 25026 SUB INP/OBS CARE 2/35MIN Diagnoses Lumbosacral radiculopathy due to degenerative joint disease of spine M47.27 Hx of opioid abuse F11.11
[2023-02-19] MEDS: MoRPHine SULFATE 4 MG/ML 1 ML CARP\\VIAL IV PRN ×6 (02:15→21:50)
[2023-02-19] MEDS: HYDROCODONE/ACETAMOPHEN 5/325MG TAB PO PRN ×3 (03:10→15:37)
[2023-02-19] MEDS: dexAMETHasone 6 MG in SYRINGE 0 ML IV SCH ×2 (06:32→15:38)
[2023-02-19] MEDS: GABAPENTIN 300 MG CAP PO SCH ×2 (08:36→20:24)
[2023-02-19] MEDS: BACLOFEN 20 MG TAB PO SCH ×3 (08:36→20:24)
[2023-02-19 10:11] LABS: Albumin Level 4.1 gm/dl (3.4-5.0); BUN Creatinine Ratio 26.8 (10-20); Creatinine Clr Calc Pharmacy 162.2 ml/min; Est GFR (African American) 135.6 ml/min; Phosphorus 2.6 mg/dl (2.5-4.9); Potassium 4.1 mmol/L (3.5-5.1)
[2023-02-19 10:19] LABS: ALC (manual) 1.73 K/uL (1.2-3.4); ANC (manual) 15.08 K/uL (1.4-6.5); Hematocrit (blood only) 49.8 % (42.0-52.0); Hemoglobin 16.6 g/dl (14.0-18.0); INR 1.1 (0.9-1.1); Lymphocytes # (manual) 1.73 K/uL (1.2-3.4); Lymphocytes % (manual) 10 %; Mean Corpuscular Hemoglobin 29.7 pg (25.0-34.0); Mean Corpuscular Hgb Conc 33.3 g/dL (32.0-36.0); Mean Corpuscular Volume 89.2 fL (80.0-100.0); Mean Platelet Volume 10.3 fL (9.4-12.4); Monocytes # (manual) 0.52 K/uL (0.11-0.59); Monocytes % (manual) 3 %; Neutrophils # (manual) 15.08 K/uL (1.40-6.50); Neutrophils % (manual) 87 %; Platelet Count 286 K/uL (130-400); Prothrombin Time 11.7 Seconds (9.0-12.0); RDW Coefficient of Variation 11.9 % (11.5-14.5); RDW Standard Deviation 39.1 fL (36.4-46.3); Red Blood Count 5.58 M/uL (4.70-6.10); White Blood Count 17.33 K/ul (4.8-10.8)
--- NOTE | 2023-02-19 14:11 | Orthopedic Progress Note ---
Date of Service February 19, 2023 Assessment & Plan (1) Lumbar disc herniation with radiculopathy: Plan: This time I made n.p.o. after midnight with plan for lumbar decompression L4-L5 tomorrow. Admission and Anticipated Discharge Date Admission Date: February 18, 2023 Subjective Patient continues to have limiting back and leg pain Physical Exam Physical Exam: Patient is in bed. Regional strength testing. Results & Data Vital Signs (Past 12 Hours) Vital Signs Temp Pulse Resp BP Pulse Ox O2 Del Method 02/19/23 07:52 36.6 C 77 12 119/63 96 Room Air Queries Orthopedic Spine Obesity: Yes
--- NOTE | 2023-02-19 14:21 | Hospitalist Progress Note ---
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 6 Hospitalizations in the last year. Has spine surgeon in [facility] recommending fusion, but wanted a second opnion before preceding (had appointment scheduled). -Radiculopathy symptoms normally LLE, but this time RLE > LLE -He denies bowel or bladder incontinence. Denies any recent trauma -CT lumbar spine:disc bulges at L4 and L5, with impingement of exiting nerve roots more prominent on left than right. There is also moderate central canal stenosis at L4-L5 level -Current pain control regiment: -Gabapentin 300 mg p.o. twice daily -Dexamethasone 6 mg IV every 8 hours - Baclofen 20 mg p.o. 3 times daily - [place] 5/325, 1 every 4 hours as needed for moderate pain - Morphine sulfate 4 mg IV every 3 hours as needed for severe pain Consult to orthopedic spine surgery Dr. Hernandez - MRI lumbar spine: Large posterior disc extrusion L4-L5 impinging on bilateral nerve roots, with severe central canal stenosis - Plan for OR 02/20 for L4-L5 Decompression -Does not need preop EKG/chest xray - no underlying cardiopulmonary problems, able to achieve 4 mets. -Coags WNL (2) Hx of opioid abuse: Plan: Patient reports addiction ~10 years ago - Agreeable to take opioids while inpatient, but does not want any rx to go home with - Would not increase current amount of inpatient narcotics (3) Tobacco chew use: Plan: - recommended cessation, especially prior to surgery -pt requested nicotine patch for this evening (ordered) Plan Dispo: continued inpatient stay, surgery planned for 02/19, medically optimized for surgery DVT proh: low risk, encourage ambulation Admission and Anticipated Discharge Date Admission Date: February 18, 2023 Supervising Physician Co-Signing Physician Notes Attending Attestation - Chart reviewed, care plan d/w SAMINA Carl. I agree w/ the brantley components of her documentation. To OR tomorrow for L-spine surgery with Dr Hernandez. Jimmie Houston MD Subjective Patient seen lying in bed, Dr. Hernandez at bedside. Plan continues to be OR tomorrow. Pain well controlled. Aware NPO at midnight, advised should stop his chewing tobacco as well. Review of Systems Review of Systems: All systems reviewed & are unremarkable except as noted in Subjective Physical Exam Physical Exam: General: WN/WD, NAD, VS as above, resting comfortably in bed Resp: normal respiratory effort, lungs clear to auscultation CV: RRR, no murmur, Abd: normal bowel sounds, non tender, no hepatosplenomegaly Results & Data Results & Data Vital Signs (Past 12 Hours) Vital Signs Temp Pulse Resp BP Pulse Ox O2 Del Method 02/19/23 07:52 36.6 C 77 12 119/63 96 Room Air Laboratory Results CBC, chemisty and INR reviewed. PG Care Time/CCT Total # of Minutes Spent Total Time Spent with Patient: Total time spent is greater than 50% in coordination of care (as documented) at patient's floor/unit and/or counseling patient: Coding Level of Care Code 59267 SUB INP/OBS CARE 2/35MIN Diagnoses Lumbosacral radiculopathy due to degenerative joint disease of spine M47.27 Hx of opioid abuse F11.11 Tobacco chew use Z72.0
[2023-02-19] MEDS: CALCIUM CARBONATE 500 MG CHEWABLE TAB PO PRN (20:24)
[2023-02-19] MEDS: NICOTINE 14 MG/24 HR PATCH TD SCH (20:25)
[2023-02-20] MEDS: dexAMETHasone 6 MG in SYRINGE 0 ML IV SCH ×2 (00:05→06:14)
[2023-02-20] MEDS: HYDROCODONE/ACETAMOPHEN 5/325MG TAB PO PRN ×2 (00:05→06:39)
[2023-02-20] MEDS: MoRPHine SULFATE 4 MG/ML 1 ML CARP\\VIAL IV PRN ×3 (01:32→08:29)
[2023-02-20] MEDS: BACLOFEN 20 MG TAB PO SCH ×3 (08:27→19:49)
[2023-02-20] MEDS: GABAPENTIN 300 MG CAP PO SCH ×2 (08:27→19:49)
[2023-02-20] MEDS ORDERED: PROPOFOL IV EMULSION 10 MG/ML 20 ML VIAL IV ONE (09:03)
[2023-02-20] MEDS ORDERED: ROCURONIUM BROMIDE 10 MG/ML 5 ML VIAL IV ONE ×2 (09:04→11:12)
[2023-02-20] MEDS ORDERED: DEXAMETHASONE SOD INJ 4 MG/ML VIAL ONE (09:04)
[2023-02-20] MEDS ORDERED: ONDANSETRON INJ 2 MG/ML 2 ML VIAL ONE (09:04)
[2023-02-20] MEDS ORDERED: LIDOCAINE 2% 2 ML VIAL/AMP(20MG/ML) INFIL ONE (09:04)
[2023-02-20] MEDS ORDERED: MIDAZOLAM HCL 1 MG/ML 2ML VIAL ONE (09:07)
[2023-02-20] MEDS ORDERED: fentaNYL citrate PF 100 MCG/2 ML VIAL ONE ×2 (09:08→10:56)
[2023-02-20] MEDS: LACTATED RINGER'S 1,000 ML IV SCH (09:31)
--- NOTE | 2023-02-20 10:00 | History & Physical Bridge Note ---
Date of Service February 20, 2023 History & Physical Bridge Note I have examined the patient, reviewed the History & Physical and in the interval since the performance of the History & Physical I have noted the following changes of clinical significance: no changes noted Lumbar decompression L4-L5
[2023-02-20] MEDS ORDERED: ceFAZolin 330 MG/ML 1 GM VIAL ONE (10:20)
[2023-02-20] MEDS ORDERED: BUPIVACAINE/EPINEPHRINE 0.25% 1:200,000 30 ML VIAL ONE (10:20)
[2023-02-20] MEDS ORDERED: ceFAZolin 2,000 MG/15 ML IV PUSH IV ONE (10:22)
[2023-02-20] MEDS ORDERED: ceFAZolin 2000MG 2,000 MG/15 ML SYR IV ONE (10:23)
[2023-02-20] MEDS ORDERED: PROMETHAZINE HCL 6.25 MG in SODIUM CHLORIDE 0.9% 50 ML IV PRN (10:29)
[2023-02-20] MEDS ORDERED: HYDROmorphone INJ 2 MG/ML SYR/VIAL IV PRN (10:29)
[2023-02-20] MEDS ORDERED: ePHEDrine sulfate 50 MG/ML AMP IV PRN (10:29)
[2023-02-20] MEDS ORDERED: ONDANSETRON INJ 2 MG/ML 2 ML VIAL IV PRN ×2 (10:29→12:41)
[2023-02-20] MEDS ORDERED: ATROPINE SULFATE 0.1 MG/ML 10ML SYR IV PRN (10:29)
--- NOTE | 2023-02-20 10:29 | Anesthesiology Consultation ---
Date of Service February 20, 2023 Assessment & Plan Chart Review Chart Review: Acceptable Risk for Surgery and Patient NOT seen in Pre Admission Testing Consults Requested none ASA ASA2 Proposed Anesthesia Risk / Benefits Reviewed With: PT / POA / Parent / Guardian, Accepts Plan and Informed Consent Obtained History Surgery Operation Date: 02/20/23 10:05 Proposed Procedures p L4-L5 Decompression - Tod Hernandez DO Height/Weight Height: 5 ft 10 in Weight: 112.2 kg Allergies Allergy/AdvReac Type Severity Reaction Status Date / Time No Known Allergies Allergy Unverified 02/16/23 16:34 Medications Home Medications Medication Instructions Recorded Confirmed Last Taken No Known Home Medications 04/28/22 02/16/23 Unknown Active Medications Generic Name Dose Route Start Last Admin Trade Name Freq PRN Reason Stop Dose Admin Hydrocodone Bitart/Acetaminophen 1 tab 02/16/23 21:05 02/20/23 06:39 Hydrocodone/Acetamophen 5/325mg Tab PO 03/02/23 21:04 1 tab Q4H PRN Administration Moderate Pain (Scale 4, 5, 6) Baclofen 20 mg 02/16/23 22:00 02/20/23 08:27 Baclofen 20 Mg Tab PO 03/18/23 21:59 20 mg TID DOMINGA Administration Calcium Carbonate 1,000 mg 02/17/23 05:29 02/19/23 20:24 Calcium Carbonate 500 Mg Chewable Tab PO 03/19/23 05:28 1,000 mg Q6H PRN Administration Indigestion Gabapentin 300 mg 02/16/23 21:00 02/20/23 08:27 Gabapentin 300 Mg Cap PO 03/18/23 20:59 300 mg BID DOMINGA Administration Dexamethasone 6 mg/ Syringe 1.5 mls @ 1 mls/min 02/16/23 23:00 02/20/23 06:14 IV 03/18/23 22:59 1 mls/min Q8H DOMINGA Administration Lactated Ringer's 1,000 mls @ 15 mls/hr 02/20/23 09:30 02/20/23 09:31 Lr IV 03/22/23 09:29 15 mls/hr .Q24H DOMINGA Administration Morphine Sulfate 4 mg 02/16/23 17:02 02/20/23 08:29 Morphine Sulfate 4 Mg/Ml 1 Ml Carp\Vial IV 03/02/23 17:01 4 mg Q3H PRN Administration Severe Pain (Scale 7, 8, 9,10) Nicotine 14 mg 02/19/23 21:00 02/19/23 20:25 Nicotine 14 Mg/24 Hr Patch TD 03/21/23 20:59 14 mg QPM DOMINGA Administration NPO Date Last Intake of Fluids: 02/20/23 Time Last Intake of Fluids: 08:00 Last Intake of Fluids Comment: sip with meds Date Last Intake of Solids: 02/19/22 Time Last Intake of Solids: 18:00 Exercise / Class Metabolic Activity II 4-5 Yardwork/Stairs/Walk up hill Past Anesthesia History No Hx of Anesthesia Complications and No Family Hx of Anesthesia Complications History of PONV No Hx of PONV and No Hx of Motion Sickness Social History Smoking Status: Former smoker Do You Dip or Chew Tobacco: Yes Hx Alcohol Use: No Hx Substance Use: No substance use type: does not use Physical Exam Vital Signs Last Vital Signs Temp 36.6 C 02/20/23 09:21 Pulse 78 02/20/23 09:21 Resp 20 02/20/23 09:21 BP 127/89 02/20/23 09:21 Pulse Ox 98 02/20/23 09:21 O2 Del Method Room Air 02/20/23 09:21 ENMT Mouth: no dentition abnormality Thyromental Distance: > or= 3.5 Finger Breadths Mallampati Class: II Neck normal visual inspection and + facial hair Respiratory normal respiratory effort Auscultation: lungs clear to auscultation bilaterally Cardiovascular Rate/Rhythm: regular rate and regular rhythm Psychiatric Orientation: alert Testing Laboratory Results 02/19/23 09:33 02/19/23 09:33 PT 11.7 Seconds (9.0-12.0) 02/19/23 09:33 INR 1.1 (0.9-1.1) 02/19/23 09:33 Urine Color Yellow 02/16/23 Unknown Urine Appearance Clear (Clear) 02/16/23 Unknown Urine pH 6.5 (4.5-7.5) 02/16/23 Unknown Ur Specific [place] 1.023 (1.000-1.030) 02/16/23 Unknown Urine Protein Negative (Negative) 02/16/23 Unknown Urine Glucose (UA) Negative (Negative) 02/16/23 Unknown Urine Ketones Negative (Negative) 02/16/23 Unknown Urine Nitrite Negative (Negative) 02/16/23 Unknown Ur Leukocyte Esterase Negative (Negative) 02/16/23 Unknown Blood Type O Positive 02/19/23 14:49 Antibody Screen NEGATIVE 02/19/23 14:49
[2023-02-20] MEDS ORDERED: SUGAMMADEX SODIUM 200 MG/2 ML VIAL IV ONE (11:12)
[2023-02-20] MEDS ORDERED: FLOSEAL HEMOSTATIC MATRIX 10ML TOP ONE ×2 (11:14→11:19)
--- NOTE | 2023-02-20 11:34 | Operative Report ---
Post Operative Report Pre & Post Diagnosis Operation Date: 02/20/23 10:05 Pre-Op Diagnosis: Lumbar spinal stenosis with herniated with his polyposis and radiculopathy L4-L5 Post-Op Diagnosis: Same I identified the patient and participated in the time-out.: Yes Procedure Operation Date: 02/20/23 10:05 Actual Procedures #1 lumbar decompression with bilateral medial facetectomies and excision of herniated free fragment L4-L5. Surgeon Tod Hernandez, DO Litigation Claim Representative Rubia Nick Estimated Blood Loss 50 Findings See Below Patient is 5 foot 10 weighing over 112 kg with a BMI in excess of 35. The patient's body habitus did contribute to significant technical difficulty with positioning exposure and the procedure itself. This at least 50% increased operative time. Specimens None Indications This is a 32-year-old male who presents with severe radiculopathy and evidence of a massive discrimination at L4-L5. After failing course of nonoperative care of MR decline in status he is here for surgical invention. Description of Procedure Patient was met with identified informed consent obtained. Patient was then taken to the operative suite underwent patient placed in a prone position on the Isaías table atop the Jcarlos frame. All bony promises well-padded eyes inspected to ensure no external placement upon the. This point lumbar spine is prepped and draped in a sterile fashion. Sharp dissection with assistance bradycardia from down to and exposing the interlaminar space at L4-5 and a self- retaining retractor placed. Informed midline decompression with bilaterally facetectomies addressing spinal stenosis. I was able to mobilize the traversing L5 nerve root on the right and identify several loose fragments of disc material underneath the root. I explored the region several times to ensure all loose fragments addressed. The incision was then copiously irrigated and a 10 round ROSA M drain inserted. It was then closed with 1 Vicryl the fascia 2-0 Vicryl subcutaneously and 4 Monocryl for final closure. Steri-Strips sterile dressing placed. Patient waken taken to PACU in stable condition. Please note Rubia Nick was present at the entire surgery and with the patient positioning complex portions of the surgery and fascial closure. I attest to the content of the Intraoperative Record and any orders documented therein. Any exceptions are noted below.
--- NOTE | 2023-02-20 11:45 | Hospitalist Progress Note ---
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 6 Hospitalizations in the last year. Has spine surgeon in [facility] recommending fusion, but wanted a second opnion before preceding (had appointment scheduled). -Radiculopathy symptoms normally LLE, but this time RLE > LLE -He denies bowel or bladder incontinence. Denies any recent trauma -CT lumbar spine:disc bulges at L4 and L5, with impingement of exiting nerve roots more prominent on left than right. There is also moderate central canal stenosis at L4-L5 level Consult to orthopedic spine surgery Dr. Hernandez - MRI lumbar spine: Large posterior disc extrusion L4-L5 impinging on bilateral nerve roots, with severe central canal stenosis - Plan for OR today 02/20 for L4-L5 Decompression - Post-op Pain control per Dr. Hernandez recommendations - Continue Baclofen and Gabapentin -Medically optimized for surgery (2) Hx of opioid abuse: Plan: Patient reports addiction ~10 years ago - Agreeable to take opioids while inpatient, but does not want any rx to go home with - Would not increase current amount of inpatient narcotics (3) Tobacco chew use: Plan: - recommended cessation, especially prior to surgery -pt requested nicotine patch (ordered) Plan Dispo: continued inpatient stay, DVT proh: low risk, encourage ambulation Admission and Anticipated Discharge Date Admission Date: February 18, 2023 Supervising Physician Co-Signing Physician Notes Attending Attestation - Chart reviewed, care plan d/w SAMINA Carl. I agree w/ the brantley components of her documentation. s/p L-spine surgery today with Dr Hernandez. Specifically, patient underwent the following - --> lumbar decompression with bilateral medial facetectomies and excision of herniated free fragment L4-L5. Jimmie Houston MD Subjective Patient seen prior to surgery this morning. pain controlled while laying in bed, has not been up to the bathroom. NPO this morning, but still using chewing tobacco, advised to stop. Denies CP or SOB Review of Systems Review of Systems: All systems reviewed & are unremarkable except as noted in Subjective Physical Exam Physical Exam: General: WN/WD, NAD, VS as above, resting comfortably in bed Resp: normal respiratory effort, lungs clear to auscultation CV: RRR, no murmur, Abd: normal bowel sounds, non tender, no hepatosplenomegaly Extremities: no edema, pedal pulses intact Results & Data Results & Data Vital Signs (Past 12 Hours) Vital Signs Temp Pulse Resp BP Pulse Ox O2 Del Method 02/20/23 09:21 36.6 C 78 20 127/89 98 Room Air 02/20/23 08:30 36.3 C L 76 17 115/74 96 Room Air PG Care Time/CCT Total # of Minutes Spent Total Time Spent with Patient: Total time spent is greater than 50% in coordination of care (as documented) at patient's floor/unit and/or counseling patient: Coding Level of Care Code 31598 SUB INP/OBS CARE 2/35MIN Diagnoses Lumbosacral radiculopathy due to degenerative joint disease of spine M47.27 Hx of opioid abuse F11.11 Tobacco chew use Z72.0
[2023-02-20] MEDS: fentaNYL citrate PF 100 MCG/2 ML VIAL IV PRN ×2 (12:00→12:05)
--- NOTE | 2023-02-20 12:04 | Fluoroscopy Report ---
INTRAOPERATIVE RADIOGRAPH CLINICAL HISTORY: Lumbar spinal surgery. Fluoro time: 2 seconds Ka,r: 2.16 mGy FINDINGS: A single spot fluoroscopic view of the lower lumbar spine is presented. A surgical implemen t projects posteriorly at the level of L4-L5. IMPRESSION: Intraoperative image from lumbar spinal surgery. See operative report for detailed findin gs. Electronically signed by: Sheldon Ponce M.D. 02/20/2023 12:02 PM
[2023-02-20] MEDS ORDERED: traMADol HCL 50 MG TABLET PO PRN (12:41)
[2023-02-20] MEDS ORDERED: FAMOTIDINE 20 MG TAB PO PRN (12:41)
[2023-02-20] MEDS ORDERED: ONDANSETRON 4 MG OD TAB PO PRN (12:41)
[2023-02-20] MEDS ORDERED: DO NOT ADMINISTER PNEUMOCOCCAL VACCINE PRN (12:41)
[2023-02-20] MEDS ORDERED: MAGNESIUM HYDROXIDE SUSP 30 ML UDC PO PRN (12:41)
[2023-02-20] MEDS ORDERED: ALUMINUM/MAGNESIUM SUSP 30 ML UDC PO PRN (12:41)
[2023-02-20] MEDS ORDERED: LORazepam 0.5 MG in SYRINGE 0.25 ML IV PRN (12:41)
[2023-02-20] MEDS ORDERED: LACTATED RINGER'S 1,000 ML IV SCH (12:41)
[2023-02-20] MEDS ORDERED: PROMETHAZINE HCL 12.5 MG in SODIUM CHLORIDE 0.9% 50 ML IV PRN (12:41)
[2023-02-20] MEDS ORDERED: SOD PHOSPHATE/SOD BIPHOSPHATE ENEMA 132 ML BTL PR PRN (12:41)
[2023-02-20] MEDS ORDERED: diphenhydrAMINE Capsule 25 MG CAP PO PRN (12:41)
[2023-02-20] MEDS ORDERED: HYDROmorphone INJ 0.5 MG/0.5 ML SYR IV PRN (12:41)
[2023-02-20] MEDS ORDERED: METOCLOPRAMIDE HCL INJ 5 MG/ML 2 ML VIAL IV PRN (12:41)
[2023-02-20] MEDS ORDERED: DO NOT ADMINISTER FLU VACCINE PRN (12:41)
[2023-02-20] MEDS ORDERED: LORazepam 0.5 MG TAB PO PRN (12:41)
[2023-02-20] MEDS ORDERED: hydrOXYzine HCl 25 MG TAB PO PRN (12:41)
[2023-02-20] MEDS ORDERED: HYDROmorphone INJ 1 MG/ML SYRINGE IV PRN (12:41)
[2023-02-20] MEDS ORDERED: NALOXONE HCL 0.4 MG/1 ML VIAL/CARP IV PRN (12:41)
[2023-02-20] MEDS ORDERED: bisacodyL 10 MG SUPP PR PRN (12:41)
--- NOTE | 2023-02-20 13:04 | Anesthesiology Progress Note ---
Date of Service February 20, 2023 Anesthesia Post Procedure Vital Signs Vital Signs: Temp Pulse Pulse Resp BP BP Pulse Ox 02/20/23 12:50 36.6 C 87 19 122/78 96 02/20/23 12:30 82 13 116/82 96 02/20/23 12:20 36.6 C 81 14 127/76 96 02/20/23 12:10 82 12 128/76 99 02/20/23 12:00 83 13 134/93 99 02/20/23 11:50 36.1 C L 82 23 136/84 97 02/20/23 09:21 36.6 C 78 20 127/89 98 02/20/23 08:30 36.3 C L 76 17 115/74 96 02/19/23 19:14 36.7 C 67 18 116/72 96 02/19/23 15:22 36.5 C 72 18 131/76 97 O2 Del Method O2 Flow Rate 02/20/23 12:50 Room Air 02/20/23 12:30 Room Air 02/20/23 12:20 Room Air 02/20/23 12:10 Oxymask 5 02/20/23 12:00 Oxymask 5 02/20/23 11:50 Oxymask 5 02/20/23 09:21 Room Air 02/20/23 08:30 Room Air 02/19/23 19:14 Room Air 02/19/23 15:22 Room Air Pain Intensity Right Back: Pain Intensity: 4 Transfer of Care Handoff Completed per policy Notes Mental Status: alert / awake / arousable Patient Amnestic to Procedure: Yes Nausea / Vomiting: adequately controlled Pain: adequately controlled Airway Patency, RR, SpO2: stable & adequate BP & HR: stable & adequate Hydration State: stable & adequate Anesthetic Complications: no major complications apparent
[2023-02-20] MEDS: oxyCODONE HCL IR 5 MG TAB (IMMEDIATE RELEASE) PO PRN ×3 (13:07→23:57)
[2023-02-20] MEDS: ACETAMINOPHEN 1,000 MG/100 ML VIAL IV PRN (13:07)
[2023-02-20] MEDS ORDERED: Nursing to Pharmacy Communication SCH (16:45)
[2023-02-20] MEDS: DOCUSATE SODIUM/SENNA 50/8.6MG TAB PO SCH (19:49)
[2023-02-20] MEDS: ceFAZolin 2000MG 2,000 MG/15 ML SYR IV SCH (19:49)
[2023-02-20] MEDS: NICOTINE 14 MG/24 HR PATCH TD SCH (19:53)
[2023-02-21] MEDS: ceFAZolin 2000MG 2,000 MG/15 ML SYR IV SCH (03:35)
[2023-02-21] MEDS: oxyCODONE HCL IR 5 MG TAB (IMMEDIATE RELEASE) PO PRN (03:55)
[2023-02-21] MEDS: POLYETHYLENE (MIRALAX) 17 GM PACK PO SCH ×3 (05:35→17:50)
[2023-02-21] MEDS: LACTATED RINGER'S 1,000 ML IV SCH (08:41)
[2023-02-21] MEDS: ACETAMINOPHEN 1,000 MG/100 ML VIAL IV PRN (09:09)
[2023-02-21] MEDS: GABAPENTIN 300 MG CAP PO SCH ×2 (09:09→21:08)
[2023-02-21] MEDS: dexAMETHasone 6 MG in SYRINGE 0 ML IV SCH (09:09)
[2023-02-21] MEDS: BACLOFEN 20 MG TAB PO SCH ×3 (09:09→21:08)
--- NOTE | 2023-02-21 10:08 | Orthopedic Progress Note ---
Date of Service February 21, 2023 Assessment & Plan (1) Lumbar disc herniation with radiculopathy: Plan: This time we will advance activity with physical therapy today monitor ROSA M output anticipate discharge home tomorrow. Admission and Anticipated Discharge Date Admission Date: February 18, 2023 Subjective Back pain controlled right leg pain improved Physical Exam Physical Exam: Patient is in bed. Has placement to testing. ROSA M drain functioning. Results & Data Vital Signs (Past 12 Hours) Vital Signs Temp Pulse Resp BP Pulse Ox O2 Del Method 02/21/23 07:31 36.7 C 80 16 121/66 96 Room Air 02/21/23 03:27 36.7 C 79 16 124/70 95 Room Air 02/20/23 23:52 36.7 C 84 16 125/73 94 Room Air 02/20/23 22:45 Room Air Queries Orthopedic Spine Obesity: Yes
[2023-02-21 10:46] LABS: Hematocrit (blood only) 47.5 % (42.0-52.0); Hemoglobin 15.9 g/dl (14.0-18.0); Mean Corpuscular Hemoglobin 29.8 pg (25.0-34.0); Mean Corpuscular Hgb Conc 33.5 g/dL (32.0-36.0); Mean Corpuscular Volume 89.1 fL (80.0-100.0); Mean Platelet Volume 10.2 fL (9.4-12.4); Platelet Count 263 K/uL (130-400); RDW Coefficient of Variation 11.9 % (11.5-14.5); RDW Standard Deviation 38.9 fL (36.4-46.3); Red Blood Count 5.33 M/uL (4.70-6.10); White Blood Count 16.32 K/ul (4.8-10.8)
[2023-02-21] MEDS: ACETAMINOPHEN 500 MG TAB PO PRN (15:51)
--- NOTE | 2023-02-21 16:28 | Hospitalist Progress Note ---
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 6 Hospitalizations in the last year. Has spine surgeon in [facility] recommending fusion, but wanted a second opnion before preceding (had appointment scheduled). -Radiculopathy symptoms normally LLE, but this time RLE > LLE -He denies bowel or bladder incontinence. Denies any recent trauma -CT lumbar spine:disc bulges at L4 and L5, with impingement of exiting nerve roots more prominent on left than right. There is also moderate central canal stenosis at L4-L5 level Consult to orthopedic spine surgery Dr. Hernandez - MRI lumbar spine: Large posterior disc extrusion L4-L5 impinging on bilateral nerve roots, with severe central canal stenosis - Plan for OR today 02/20 for L4-L5 Decompression - Post-op Pain control per Dr. Hernandez recommendations - Continue Baclofen and Gabapentin (2) Hx of opioid abuse: Plan: Patient reports addiction ~10 years ago - Agreeable to take opioids while inpatient, but does not want any rx to go home with - Would not increase current amount of inpatient narcotics (3) Tobacco chew use: Plan: - recommended cessation, especially prior to surgery -pt requested nicotine patch (ordered) Plan Dispo: continued inpatient stay, hopeful for discharge tomorrow DVT proh: low risk, encourage ambulation Admission and Anticipated Discharge Date Admission Date: February 18, 2023 Subjective Patient seen resting in bed. Pain controlled at rest, mostly having nerve pain but has not been out of bed yet today. Review of Systems Review of Systems: All systems reviewed & are unremarkable except as noted in Subjective Physical Exam Physical Exam: General: NAD, lying in bed, multiple cans of cheweing tobacco on bedside table. VS as above Resp: normal respiratory effort, lungs clear to auscultation CV: RRR, no murmur, Abd: normal bowel sounds, non tender, no hepatosplenomegaly Extremities: Moves all extremities, no edema Neuro: A&O x3, Results & Data Results & Data Vital Signs (Past 12 Hours) Vital Signs Temp Pulse Resp BP Pulse Ox O2 Del Method 02/21/23 15:28 36.8 C 88 16 122/74 96 Room Air 02/21/23 11:16 36.8 C 83 16 128/68 96 Room Air 02/21/23 07:31 36.7 C 80 16 121/66 96 Room Air PG Care Time/CCT Total # of Minutes Spent Total Time Spent with Patient: Total time spent is greater than 50% in coordination of care (as documented) at patient's floor/unit and/or counseling patient: Coding Level of Care Code 16343 SUB INP/OBS CARE 2/35MIN Diagnoses Lumbosacral radiculopathy due to degenerative joint disease of spine M47.27 Hx of opioid abuse F11.11 Tobacco chew use Z72.0
[2023-02-21] MEDS: DOCUSATE SODIUM/SENNA 50/8.6MG TAB PO SCH (21:08)
[2023-02-21] MEDS: NICOTINE 14 MG/24 HR PATCH TD SCH (21:09)
[2023-02-21] MEDS ORDERED: COUGH DROP (SUGAR FREE) LOZ 24 LOZ/1 BOX BUCCAL PRN (23:53)
[2023-02-22] MEDS: POLYETHYLENE (MIRALAX) 17 GM PACK PO SCH ×2 (00:13→05:06)
[2023-02-22] MEDS: ACETAMINOPHEN 500 MG TAB PO PRN (05:10)
[2023-02-22 07:10] LABS: Hematocrit (blood only) 47.8 % (42.0-52.0); Mean Corpuscular Hemoglobin 29.9 pg (25.0-34.0); Mean Corpuscular Hgb Conc 33.5 g/dL (32.0-36.0); Mean Corpuscular Volume 89.3 fL (80.0-100.0); Mean Platelet Volume 10.5 fL (9.4-12.4); Platelet Count 237 K/uL (130-400); RDW Coefficient of Variation 11.9 % (11.5-14.5); RDW Standard Deviation 38.8 fL (36.4-46.3); Red Blood Count 5.35 M/uL (4.70-6.10)
--- NOTE | 2023-02-22 08:12 | Orthopedic Progress Note ---
Date of Service February 22, 2023 Assessment & Plan (1) Lumbar disc herniation with radiculopathy: Plan: Kevin is postoperative day 2 status post L4-5 decompression. He is orthopedically stable for discharge. Will DC ROSA M drain. Follow-up in our office in 2 weeks. Admission and Anticipated Discharge Date Admission Date: February 18, 2023 Subjective Kevin is postoperative day 2 status post L4-5 decompression. He had a bowel movement. ROSA M drain output last shift was 20 cc. Yesterday in physical therapy MS about 100 feet. Pain seems to be controlled. Review of Systems Review of Systems: All systems reviewed & are unremarkable except as noted in HPI & below Physical Exam Physical Exam: Laying in bed in no acute distress Alert and oriented x 3 Strength unchanged bilateral lower extremities Lumbar dressing is clean dry and intact with functioning ROSA M drain Results & Data Vital Signs (Past 12 Hours) Vital Signs Temp Pulse Resp BP BP Pulse Ox O2 Del Method 02/22/23 07:11 36.5 C 65 16 106/60 96 Room Air 02/22/23 00:36 Room Air 02/21/23 23:12 36.5 C 88 16 119/75 94 Room Air Queries Orthopedic Spine Obesity: Yes
--- NOTE | 2023-02-22 10:12 | Discharge Summary ---
Discharge Summary Date of Service February 22, 2023 Notes For Next Care Provider Lumbar decompression performed, has follow-up with orthospine in 2 weeks Medication Changes From Visit I cancelled the rx for opiates at patient request. Should use Tylenol for pain control. 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 He denies loss of bowel or bladder function. 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 6 Hospitalizations in the last year. Has spine surgeon in [facility] recommending fusion, but wanted a second opnion before preceding (had appointment scheduled). -Radiculopathy symptoms normally LLE, but this time RLE > LLE -He denies bowel or bladder incontinence. Denies any recent trauma -CT lumbar spine:disc bulges at L4 and L5, with impingement of exiting nerve roots more prominent on left than right. There is also moderate central canal stenosis at L4-L5 level Consult to orthopedic spine surgery Dr. Hernandez - MRI lumbar spine: Large posterior disc extrusion L4-L5 impinging on bilateral nerve roots, with severe central canal stenosis - S/p L4-L5 Decompression on 02/[address] Hernandez - - Baclofen and Gabapentin discontinued at discharge (2) Hx of opioid abuse: Patient reports addiction ~10 years ago - Agreeable to take opioids while inpatient, but does not want any rx to go home with --> rx cancelled at [facility] pharmacy - (3) Tobacco chew use: - recommended cessation, will aide in healing process Plan Dispo: discharge to home Discharge Exam General: lying in bed, reports he has been out of bed today, NAD, VS as above Resp: normal respiratory effort, lungs clear to auscultation CV: RRR, no murmur, Abd: normal bowel sounds, non tender, no hepatosplenomegaly Extremities: Moves all extremities, no edema. Updated Medication List Medication Instructions Recorded Confirmed Type No Known Home Medications 04/28/22 02/16/23 History oxycodone 5 mg tablet 5 mg PO Q6H PRN pain #30 tabs 02/21/23 Rx tramadol 50 mg tablet 50 mg PO Q6H PRN pain, moderate 02/21/23 Rx #30 tabs Hospital Stay Data Consultations 02/16/23 16:38 ED Decision to Admit Stat 02/16/23 16:51 Consult Orthopedic Surgery Routine Procedures Performed Operation Date: 02/20/23 10:05 Actual Procedures p L4-L5 Decompression(Not Applicable) - Tod Hernandez DO Diagnostic Imagining Performed 02/16/23 12:36 CT lumbar spine wo con Stat 02/18/23 00:11 MR lumbar spine wo con Routine 02/20/23 10:05 FL spine 1V any level Routine Pending Results Patient Have Any Pending Studies at Discharge: No Discharge Instructions Given to Patient (Per Discharging Provider) ACTIVITY RECOMMENDATIONS: SELF CARE INSTRUCTIONS AFTER A LAMINECTOMY 1. No prolonged sitting (less than 30 minutes for the first 3 weeks after surgery). 2. No bending, lifting more than 5 pounds, or twisting (roll like a log when turning in bed). 3. You may shower 3 days after surgery if no drainage from wound. Thoroughly dry wound. Do not soak in the tub. 4. Please walk as much as you can for exercise. Gradually increase the distance that you walk as your endurance increases. 5. You may drive in 7-10 days if you are comfortable and no longer requiring pain medications. SPECIAL CARE INSTRUCTIONS: VERY IMPORTANT TO READ AND REVIEW A. Your surgical incision has been closed with a cosmetic suture under the skin that will dissolve in about 6 weeks. In 14 days, you can use a pair of clean scissors and cut the suture that is left outside of the skin at the ends of your incision. B. Complications are uncommon, but please contact us if you have any signs or symptoms of: 1. wound infection (fever higher than 102.5 degrees F, redness, separation of wound, drainage, or increasing pain from the incision) 2. blood clots in legs (pain, swelling, redness and warmth in legs) 3. urinary tract infection (fever higher than 102.5 degrees, burning upon urination or increased frequency of urination) 4. nerve problems (inability to walk on your toes or heels, numbness, loss of bowel or bladder control) 5. any other symptoms that concern you. C. Please call the office at if you have any concerns or questions about your operation or recovery. MANAGING PAIN AFTER SPINAL SURGERY 1. Narcotic medication is intended for short-term use and will be provided for surgical pain. Surgical pain usually lasts for a period of 4-6 weeks. Narcotic medication includes Percocet, Vicodin, Darvocet, Tylenol #3 or Lortab. 2. Longer-term pain is more appropriately treated with non-narcotic medication such as Tylenol ES. 3. Muscle spasm is not appropriately treated with narcotics. Muscle relaxers such as Soma, Flexeril or Skelaxin can be used along with Tylenol ES. 4. Remember that we all live with some "aches and pains". This is not unusual or uncommon after an injury or as we get older. 5. We will provide appropriate medication within the normal guidelines of their prescribed use. We will also be very cautious and aware of potential abuse and extended duration of patients' medication needs. 6. Please allow 2-3 days to process refills. Prescriptions will not be mailed but must be picked up at the office. FOLLOW UP VISIT: Keep your scheduled follow-up appointment. Any questions, please call the office at . Total Time Total Time Spent Total Time Spent (In Minutes): greater than 35 minutes was spent reviewing patient chart, discussion and education with patient, documentation, discussing with nursing staff and coordinating medication with outside pharmacy Coding Level of Care Code 66580 INP/OBS DISCH >30 MIN Diagnoses Lumbosacral radiculopathy due to degenerative joint disease of spine M47.27 Hx of opioid abuse F11.11 Tobacco chew use Z72.0
[2023-02-22] MEDS: BACLOFEN 20 MG TAB PO SCH (10:13)
[2023-02-22] MEDS: GABAPENTIN 300 MG CAP PO SCH (10:13)
[2023-02-22] MEDS: dexAMETHasone 6 MG in SYRINGE 0 ML IV SCH (10:14)
== END 2023-02-22 12:37 | disposition home or self-care (01) | DRG 517 ==
LOC: ED 10:40 → 3N 10:40 → SUATTDRO 16:51 → 3N 21:22
DX: F11.11 Opioid abuse, in remission; M54.16 Radiculopathy, lumbar region; Z87.891 Personal history of nicotine dependence